=== PATIENT | male | born 1975 | race Caucasian/White ===

== ENCOUNTER 2018-10-29 07:59 | Emergency (ER) | payer SELFPAY ==
[~2018-10-29] VITALS: Ht 177.8 cm; Wt 80.2 kg
[2018-10-29 08:08] VITALS: BP 128/75
[2018-10-29] MEDS ORDERED: ACETAMINOPHEN 500 MG TABLET ONE (08:50)
[2018-10-29] MEDS ORDERED: PLEASE ENTER HEIGHT AND WEIGHT MC SCH (09:00)
[2018-10-29] MEDS ORDERED: ACETAMINOPHEN 500 MG TABLET PO ONE (09:00)
--- NOTE | 2018-10-29 10:00 | NUR ---
ASSUME CARE FOR D/C ONLY
== END 2018-10-29 10:02 | disposition home or self-care (01) ==
LOC: ED 09:57
DX: B34.9 Viral infection, unspecified (principal); B35.3 Tinea pedis
CPT/HCPCS: 87081; 87147; 87880; 99283

== ENCOUNTER 2018-10-31 07:42 | Emergency (ER) | payer SELFPAY ==
[~2018-10-31] VITALS: Ht 170.2 cm; Wt 79.0 kg
[2018-10-31 07:46] VITALS: BP 135/84
--- NOTE | 2018-10-31 08:21 | NUR ---
patient and friend given warm blankets
== END 2018-10-31 08:56 | disposition home or self-care (01) ==
LOC: ED 08:40
DX: K12.0 Recurrent oral aphthae (principal)
CPT/HCPCS: 36415; 80074; 87806; 99283; G0475